=== PATIENT | female | born 1940 | race Caucasian/White ===

== ENCOUNTER 2018-08-29 23:55 | Emergency (ER) | payer MEDICARE, OTHER ==
[~2018-08-29] VITALS: Ht 165.1 cm; Wt 79.8 kg
[2018-08-30] MEDS ORDERED: ACCUPRIL10 MG PO (00:57)
[2018-08-30] MEDS ORDERED: SYNTHROID100 MCG PO (00:57)
[2018-08-30] MEDS ORDERED: B COMPLEX1 EACH PO (00:58)
[2018-08-30] MEDS ORDERED: PHENAZOPYRIDIN200 MG PO (00:58)
[2018-08-30] MEDS ORDERED: HYOSCYAMINE0.125 MG PO (00:59)
== END 2018-08-30 01:30 | disposition home or self-care (01) ==
LOC: ED 23:55
DX: N93.9 Abnormal uterine and vaginal bleeding, unspecified (principal); I10 Essential (primary) hypertension; E03.9 Hypothyroidism, unspecified; Z90.710 Acquired absence of both cervix and uterus; Z90.49 Acquired absence of other specified parts of digestive tract; Z88.2 Allergy status to sulfonamides; Z88.8 Allergy status to other drugs, medicaments and biological substances; Z79.899 Other long term (current) drug therapy
CPT/HCPCS: 80053; 81001; 85025; 99284